=== PATIENT | female | born 1970 | race Caucasian/White ===

== ENCOUNTER 2018-06-07 22:30 | Emergency (ER) | payer OTHER ==
[~2018-06-07] VITALS: Ht 154.9 cm; Wt 56.2 kg
[~2018-06-07 22:30] MED LIST: CEFTIN500 MG PO; DIAZEPAM10 MG PO; GILTUSS LIQUID237 M1 PO; MEDROL4 MG PO; MOTRIN800 MG PO; NEURONTIN300 MG PO
[2018-06-08] MEDS ORDERED: LEVSIN/SL0.125 MG SL (03:11)
== END 2018-06-08 03:37 | disposition home or self-care (01) ==
LOC: ER 22:30
DX: R10.2 Pelvic and perineal pain (principal)

== ENCOUNTER 2019-01-20 10:30 | Outpatient (CLI) | payer OTHER ==
[~2019-01-20 10:30] MED LIST changes: +LEVSIN/SL0.125 MG SL
== END 2019-01-20 10:32 | disposition home or self-care (01) ==
LOC: MAMO-SONO 10:30
DX: N63.10 Unspecified lump in the right breast, unspecified quadrant (principal); N63.20 Unspecified lump in the left breast, unspecified quadrant; Z12.31 Encounter for screening mammogram for malignant neoplasm of breast

== ENCOUNTER 2020-09-13 12:38 | Outpatient (CLI) | payer OTHER | END 2020-09-13 12:47 | disposition home or self-care (01) | LOC: MAMO-SONO 12:38 | PROVIDERS: ATTEND Specialist | DX: Z12.31 Encounter for screening mammogram for malignant neoplasm of breast (principal); N64.59 Other signs and symptoms in breast ==

== ENCOUNTER 2020-11-14 16:02 | Emergency (ER) | payer OTHER ==
[~2020-11-14] VITALS: Ht 154.9 cm; Wt 63.5 kg
[2020-11-14] MEDS ORDERED: MEDROLPACK PO (18:31)
== END 2020-11-14 18:59 | disposition home or self-care (01) ==
LOC: ER 16:02
DX: G51.0 Bell's palsy (principal)

== ENCOUNTER 2022-06-23 10:52 | Outpatient (CLI) | payer OTHER | END 2022-06-23 11:18 | disposition home or self-care (01) | LOC: MAMO-SONO 10:52 | DX: Z12.31 Encounter for screening mammogram for malignant neoplasm of breast (principal); N63.0 Unspecified lump in unspecified breast; N95.0 Postmenopausal bleeding ==

== ENCOUNTER 2023-04-18 17:40 | Emergency (ER) | payer OTHER ==
[~2023-04-18] VITALS: Ht 154.9 cm; Wt 64.4 kg
[~2023-04-18 17:40] MED LIST changes: +MEDROLPACK PO
== END 2023-04-18 19:09 | disposition home or self-care (01) ==
LOC: ER 17:40
DX: M25.512 Pain in left shoulder (principal); M75.00 Adhesive capsulitis of unspecified shoulder; Z88.5 Allergy status to narcotic agent; Z88.0 Allergy status to penicillin; Z88.1 Allergy status to other antibiotic agents

== ENCOUNTER 2023-04-22 10:59 | Outpatient (CLI) | payer OTHER | END 2023-04-22 11:04 | disposition home or self-care (01) | LOC: SONOGRAMA 10:59 | PROVIDERS: ATTEND General Practice | DX: M75.52 Bursitis of left shoulder (principal); M25.512 Pain in left shoulder ==

== ENCOUNTER 2025-05-31 13:29 | Outpatient (CLI) | payer OTHER | END 2025-05-31 13:37 | disposition home or self-care (01) | LOC: SONOGRAMA 13:29 | PROVIDERS: ATTEND Specialist | DX: N63.0 Unspecified lump in unspecified breast (principal); Z12.31 Encounter for screening mammogram for malignant neoplasm of breast ==